=== PATIENT | male | born 1970 | race Caucasian/White ===

== ENCOUNTER 2021-05-27 14:14 | Emergency (ER) | payer OTHER ==
[~2021-05-27] VITALS: Ht 175.3 cm; Wt 99.8 kg
[2021-05-27] MEDS ORDERED: LISINOPRIL20 MG PO (14:38)
[2021-05-27] MEDS ORDERED: AMLODIPINE BESY10 MG PO (14:38)
[2021-05-27] MEDS ORDERED: CITALOPRAM HBR20 MG PO (14:38)
[2021-05-27] MEDS ORDERED: VITAMIN D350 MCG PO (14:39)
[2021-05-27] MEDS ORDERED: ONDANSETRON ODT8 MG PO (16:57)
== END 2021-05-27 17:14 | disposition home or self-care (01) ==
LOC: ED 14:14
DX: K52.9 Noninfective gastroenteritis and colitis, unspecified (principal); Z20.822 Contact with and (suspected) exposure to COVID-19; I10 Essential (primary) hypertension; Z87.891 Personal history of nicotine dependence; Z79.899 Other long term (current) drug therapy
CPT/HCPCS: 80053; 85025; 96374; 99284-25; C9803; J2405; J7030; J7121; U0003

== ENCOUNTER 2025-06-13 09:20 | Emergency (ER) | payer OTHER ==
[~2025-06-13] VITALS: Ht 175.3 cm; Wt 95.5 kg
[~2025-06-13 09:20] MED LIST: AMLODIPINE BESY10 MG PO; CITALOPRAM HBR20 MG PO; LISINOPRIL20 MG PO; ONDANSETRON ODT8 MG PO; VITAMIN D350 MCG PO
[2025-06-13 09:41] LABS: BASOPHILS 0.2 % (0.2-1.2); EOSINOPHILS 0.5 % (0.8-7.0); LYMPHOCYTES 21.7 % (21.8-53.1); MCH 31.4 PG (25.7-32.2); MCHC 33.2 g/dL (32.3-36.5); MCV 94.6 fL (79.0-92.2); MONOCYTES 5.3 % (5.3-12.2); NEUTROPHILS 71.7 % (34.0-67.9); RBC 5.00 M/uL (4.63-6.08)
[2025-06-13] MEDS ORDERED: HYDROmorphone HCL 1 MG/ML SYR IV ONE (09:45)
[2025-06-13 09:55] LABS: INR 0.94 (0.80-1.30); PROTIME 11.9 Sec (11.2-14.2)
[2025-06-13 10:02] LABS: ALT (SGPT) 28.0 U/L (14-59); AST (SGOT) 15.0 U/L (15-37); GLOMERULAR FILTRATION RATE,EST 109.0 mL/min (>60); PROTEIN, TOTAL 7.3 g/dL (6.4-8.2); UREA NITROGEN 33.0 mg/dL (7-18)
[2025-06-13] MEDS ORDERED: ESMOLOL HCL 250 ML IV SCH (10:15)
[2025-06-13] MEDS ORDERED: LIDOCAINE & ANTACID 35 ML BTL PO ONE (10:45)
[2025-06-13] MEDS ORDERED: ASPIRIN 81 MG CHEW PO ONE (10:45)
[2025-06-13] MEDS ORDERED: OMEPRAZOLE40 MG PO (12:23)
[2025-06-13 12:39] VITALS: BP 157/87
--- NOTE | 2025-06-14 14:00 | EKG ---
[facility] [address] [facility] [place] [address] Signed Normal sinus rhythm Normal ECG No previous ECGs available Confirmed by Tawanda Hidalgo MD () on 06/14/2025 2:00:46 PM Electronically Signed By: TAWANDA HIDALGO MD 06/14/25 1400 PATIENT NAME: CHON RAMOS Electrocardiogram DATE OF : 74 PHYSICIAN: TAWANDA HIDALGO MD REPORT #: [id number] REPORT IS CONFIDENTIAL AND NOT TO BE RELEASED WITHOUT AUTHORIZATION
== END 2025-06-13 12:41 | disposition home or self-care (01) ==
LOC: ED 09:20
PROVIDERS: Emergency Medicine
DX: K21.9 Gastro-esophageal reflux disease without esophagitis (principal); I10 Essential (primary) hypertension; Z87.891 Personal history of nicotine dependence
CPT/HCPCS: 36415; 71045; 71275; 74175; 80053; 83880; 84484; 85025; 85379; 85610; 85730; 93005; 93010; 96365; 96375; 99285-25; A9270; J1171; J2405; Q9967

== ENCOUNTER 2025-09-12 01:03 | Observation (INO) | payer OTHER ==
[2025-09-12] VITALS (7 sets, daily range): BP systolic 133–165; BP diastolic 78–98
[~2025-09-12] VITALS: Ht 175.3 cm; Wt 98.5 kg
[~2025-09-12 01:03] MED LIST changes: +OMEPRAZOLE40 MG PO
[2025-09-12 01:25] LABS: BASOPHILS 0.2 % (0.2-1.2); EOSINOPHILS 1.0 % (0.8-7.0); LYMPHOCYTES 15.6 % (21.8-53.1); MCH 33.0 PG (25.7-32.2); MCHC 34.3 g/dL (32.3-36.5); MCV 96.2 fL (79.0-92.2); MONOCYTES 6.1 % (5.3-12.2); NEUTROPHILS 76.7 % (34.0-67.9); RBC 5.03 M/uL (4.63-6.08)
[2025-09-12] MEDS ORDERED: MORPHINE SULFATE 4 MG/ML VIAL IV ONE (01:30)
[2025-09-12] MEDS ORDERED: FAMOTIDINE 20 MG/ 2 ML VIAL IV ONE (01:30)
[2025-09-12] MEDS ORDERED: LACTATED RINGER'S 1,000 ML IV SCH ×4 (01:30→12:00)
[2025-09-12 01:40] LABS: ALT (SGPT) 28.0 U/L (14-59); AST (SGOT) 14.0 U/L (15-37); GLOMERULAR FILTRATION RATE,EST 106.0 mL/min (>60); PROTEIN, TOTAL 7.4 g/dL (6.4-8.2); UREA NITROGEN 24.0 mg/dL (7-18)
[2025-09-12] MEDS ORDERED: KETOROLAC TROMETHAMINE 30 MG/ML VIAL IV ONE (02:00)
[2025-09-12 02:13] LABS: BLOOD/HGB, URINE TRACE-I (Negative); KETONE, URINE NEGATIVE (Negative); LEUK ESTERASE, URINE NEGATIVE (negative); NITRITE, URINE NEGATIVE (negative)
[2025-09-12] MEDS ORDERED: TAMSULOSIN HCL 0.4 MG CAP PO ONE (02:15)
[2025-09-12 02:28] LABS: AMPHETAMINES, URINE NEGATIVE (NEGATIVE); BARBITURATES, URINE NEGATIVE (NEGATIVE); BENZODIAZEPINE, URINE NEGATIVE (NEGATIVE); CANNABINOID, URINE POSITIVE (NEGATIVE); COCAINE, URINE POSITIVE (NEGATIVE); ECSTASY, URINE NEGATIVE (NEGATIVE); FENTANYL, URINE NEGATIVE (NEGATIVE); METHADONE, URINE NEGATIVE (NEGATIVE); OPIATES, URINE POSITIVE (NEGATIVE); OXYCODONE, URINE NEGATIVE (NEGATIVE); PHENCYCLIDINE, URINE NEGATIVE (NEGATIVE)
[2025-09-12 02:36] LABS: CRYSTALS, URINE NONE SEEN (0-1+); EPITHELIAL CELLS, URINE NONE SEEN /lpf (0-1+)
[2025-09-12 02:37] LABS: BACTERIA, URINE NONE SEEN /hpf (negative); CASTS, URINE NONE SEEN \\lpf; REFLEX CULTURE, URINE No (No)
[2025-09-12] MEDS ORDERED: CEFAZOLIN SODIUM 2 GM in SODIUM CHLORIDE 0.9% 100 ML IV ONE (04:00)
[2025-09-12] MEDS ORDERED: AMLODIPINE BESYLATE 10 MG TAB PO ONE (05:15)
[2025-09-12] MEDS ORDERED: MORPHINE SULFATE 4 MG/ML VIAL IV PRN (07:00)
--- NOTE | 2025-09-12 08:23 | NUR ---
PT ARRIVES TO MED-SURG AT 0807 VIA GURNEY, ESCORTED BY MIKA JONES. VERBAL REPORT RECEIVED. PT IS ALERT AND ORIENTED. VSS. PT IS CALM AND COOPERATIVE. ARRIVES WITH GLASSES ON. CLOTHING REMOVED, NEW GOWN DONNED. PT ORIENTED TO ROOM, BED AND CALL LIGHT. STANDING WEIGHT OBTAINED. PT DENIES NAUSEA AT THIS TIME. REPORTS RLQ AND EPIGASTRIC PAIN TOLERABLE AT THIS TIME, 10/30. CELL PHONE AT BEDSIDE. NO REQUESTS AT THIS TIME.
[2025-09-12] MEDS ORDERED: FAMOTIDINE 20 MG/ 2 ML VIAL IV SCH ×2 (09:00→12:01)
--- NOTE | 2025-09-12 10:11 | NUR ---
PT JUST ARRIVED - NPO STATUS - PT HAS CALL LIGHT AND IS WATCHING TV.
--- NOTE | 2025-09-12 10:31 | NUR ---
MORPHINE RECEIVED FOR RLQ PAIN 5/10, SEE EMAR.
[2025-09-12] MEDS ORDERED: SEVOFLURANE 250 ML BTL INH ONE (10:33)
[2025-09-12] MEDS ORDERED: KETOROLAC TROMETHAMINE 30 MG/ML VIAL IV PRN (12:00)
[2025-09-12] MEDS ORDERED: CEFAZOLIN SODIUM 2 GM in SODIUM CHLORIDE 0.9% 100 ML IV SCH (12:00)
[2025-09-12] MEDS ORDERED: MORPHINE SULFATE 10 MG/ML VIAL IV PRN (12:00)
[2025-09-12] MEDS ORDERED: ALBUTEROL SULFATE 0.083% 3 ML VIAL INH SCH (12:15)
--- NOTE | 2025-09-12 12:52 | NUR ---
DISCUSSED PRE PROCEDURE INSTRUCTIONS, PT VERBALIZES UNDERSTANDING. COMPLETE CHG WIPE DOWN. NEW GOWN DONNED, NEW LINEN PLACED ON BED.
--- NOTE | 2025-09-12 12:54 | NUR ---
PT PERFORMED PRE-SURGICAL WIPEDOWN. COMPLETE LINEN CHANGE AND GOWN CHANGE COMPLETED. RN PREPARING PT FOR SURGERY. CALL LIGHT IS WITH PT.
--- NOTE | 2025-09-12 12:57 | NUR ---
LR INFUSION RATE CHANGED TO 85ML/HR ORDERED.
--- NOTE | 2025-09-12 13:58 | EKG ---
[facility] [address] [facility] [place] [address] Signed Normal sinus rhythm Normal ECG When compared with ECG of 13-JUN-2025 09:27, No significant change was found Confirmed by Tawanda Hidalgo MD () on 09/12/2025 1:58:25 PM Electronically Signed By: TAWANDA HIDALGO MD 09/12/25 1358 PATIENT NAME: CHON RAMOS Electrocardiogram DATE OF : 74 PHYSICIAN: TAWANDA HIDALGO MD REPORT #: [id number] REPORT IS CONFIDENTIAL AND NOT TO BE RELEASED WITHOUT AUTHORIZATION
[2025-09-12] MEDS ORDERED: KETOROLAC TROMETHAMINE 30 MG/ML VIAL ONE (15:33)
[2025-09-12] MEDS ORDERED: DEXAMETHASONE SOD PHOS 4 MG/ML VIAL ONE (15:33)
[2025-09-12] MEDS ORDERED: ACETAMINOPHEN 1,000 MG/100 ML VIAL ONE (15:34)
[2025-09-12] MEDS ORDERED: SUGAMMADEX SODIUM 200 MG/2 ML ML ONE (15:34)
[2025-09-12] MEDS ORDERED: LIDOCAINE HCL 2% 5 ML SDV ONE (15:34)
[2025-09-12] MEDS ORDERED: MIDAZOLAM HCL 2 MG/2 ML VIAL ONE (15:34)
[2025-09-12] MEDS ORDERED: SUCCINYLCHOLINE IN 0.9% NACL 200 MG/10 ML SYRINGE ONE (15:34)
[2025-09-12] MEDS ORDERED: ROCURONIUM BROMIDE 50 MG/5 ML SYR ONE ×2 (15:34→16:38)
[2025-09-12] MEDS ORDERED: fentaNYL citrate 100 MCG/2 ML VIAL ONE ×2 (15:34→16:40)
--- NOTE | 2025-09-12 15:41 | NUR ---
PT RESTS IN BED, AWAKE AND ALERT, GLASSES OFF. DISCUSSED PRE-OP PRECEDURE, PT VERBALIZES UNDERSTANDING.
--- NOTE | 2025-09-12 15:50 | NUR ---
PT LEAVES MED-SURG VIA [facility] FOR SURGICAL PROCEDURE.
[2025-09-12] MEDS ORDERED: PROCHLORPERAZINE EDISYLATE 10 MG/2 ML VIAL IV PRN (16:00)
[2025-09-12] MEDS ORDERED: fentaNYL citrate 50 MCG/ML SDV IV PRN (16:00)
[2025-09-12] MEDS ORDERED: NALOXONE HCL 0.4 MG SYR IV PRN (16:00)
[2025-09-12] MEDS ORDERED: HYDROmorphone HCL 1 MG/ML SYR IV PRN (16:00)
[2025-09-12] MEDS ORDERED: IBLOOD GLUCOSE TEST STRIP 1 EA TEST VI PRN (16:00)
[2025-09-12] MEDS ORDERED: PHENYLEPHRINE HCL IN 0.9% NACL 1 MG/10 ML SYR ONE (16:11)
[2025-09-12] MEDS ORDERED: VASOPRESSIN 20 UNITS/ML VIAL ONE (16:18)
[2025-09-12] MEDS ORDERED: LACTATED RINGER'S 1,000 ML IV ONE (16:52)
[2025-09-12] MEDS ORDERED: NICOTINE 21 MG/24 HR 1 EA TDSY TD SCH (18:00)
--- NOTE | 2025-09-12 18:01 | NUR ---
09/12/25 1801 Michelle Mack 1736- PT IS TRANSFERED TO PACU. BREATHING IS EVEN AND UNLABORED. 6L OF O2 VIA MASK IN PLACE. PT IS REACTIVE TO STILULI BUT UNABLE TO FOLLOW DIRECTIONS. PT SITS UP AND ROLLS TO THE LEFT SIDE. VSS. MONITORS PUT IN PLACE. 174-O2 TURNED OFF AND REMOVED AT THIS TIME. PT DENIES PAIN AND NAUSEA AND EASILY FALLS BACK TO SLEEP WITH SNORING NOTED. 1743-PT O2 DECREASED TO 87% WHILE RESTING. PT IS ENCOURAGED TO BREATH DEEPLY AND IS ABLE TO FOLLOW DIRECTIONS. 2 SATS INCREASE TO 91% BUT SLOWLY DECREASE. 2L OF O2 VIA NC PUT IN PLACE AT THIS TIME. 1747- PT O2 SATS CONTINUE TO BE IN THE HIGH 80S. O2 INCREASED TO 3L. PT MAINTAINING O2 SATS IN THE LOW 90S AND IS COUGHING OFF AND ON. 1756- PT IS GIVEN A PILLOW FOR SPLINTING AND EDUCATED ABOUT COUGHING AND DEEP BREATHING AND PT IS UNDERSTANDING AND ABLE TO DO SO WITHOUT REMINDING.
--- NOTE | 2025-09-12 18:14 | NUR ---
PT RETURNS TO MED-SURG VIA BED, AWAKE AND ALERT. BEDSIDE REPORT RECEIVED FROM MIKA WHEATLEY. VSS. PT DENIES PAIN OR NAUSEA AT THIS TIME. INCISION SITES X4 TO RIGHT ABDOMEN AND EPIGASTRIC REGION ARE WELL APPROXIMATED WITH STERI STRIPS. OLD SEROSANGUINEOUS DRAINAGE NOTED. PT ON 2LPM, SPO2 98%, OCCASIONAL COUGH. BT X4 ACTIVE. COARSE LUNG SOUNDS IN THE UPPER LOBES. PT ENCOURAGED TO BRACE ABDOMEN WITH PILLOW WHEN COUGHING. SCDS TO BLE FROM TOES TO KNEE. CPOX IN PLACE.
[2025-09-12] MEDS ORDERED: OXYCODONE/APAP 7.5/325 TAB PO PRN (18:15)
[2025-09-12] MEDS ORDERED: IBUPROFEN 600 MG TAB PO PRN (18:15)
[2025-09-12] MEDS ORDERED: ACETAMINOPHEN 500 MG TAB PO PRN (18:15)
--- NOTE | 2025-09-12 18:20 | NUR ---
LR CONTINUOUS INFUSION RESUMED ORDER. LAC IV PATENT, NO REDNESS OR LEAKING NOTED.
--- NOTE | 2025-09-12 21:13 | NUR ---
PATIENT RESTING IN BED NO DISTRESS NOTED ON VISUAL, PATIENT REPORTS PAIN IS TOLERABLE AT THIS TIME. V/S COMPLETE. HE NOW ON 2L N.C. SATURATION IS 93%. ON ASSESSMENT CONCERN NOTED FOR RIGHT LATERAL LAP SITE IS SWOLLEN. PATIENT REPORTS NOT NORMAL.
--- NOTE | 2025-09-12 21:27 | NUR ---
CALLED FOR LATERAL RIGHT SIDE SWELLING UNDER LAP SITE. UPDATED ON PATIENT STATUS, V/S, URINE OUT. ASSESSMENT. SAID TO APPLY PRESSURE AND MONITOR FOR NOW. PATIENT HAD SIGNIFICANT COUGHING IN PACU AND HAS CONTINUED TO HAVE INTERMITTEN COUGH POST OP.
--- NOTE | 2025-09-12 21:30 | NUR ---
CHON (AKA: TEODORO) DEFINITELY BENEFITED FROM THE ALBUTEROL TREATMENT. BREATH SOUNDS GOING FROM DIM FINE CRACKLES TO CLEAR POST TREATMENT. UPON DISCHARGE, TEODORO WOULD BENEFIT FROM A HOME NEBULIZER WITH DUONEBS QID AND ALBUTEROL PRN. ADDITIONALLY, HE MAY NEED HOME OXYGEN, ESPECIALLY WHEN SLEEPING.
[2025-09-12] MEDS ORDERED: ALBUTEROL SULFATE 0.083% 3 ML VIAL INH PRN (22:00)
--- NOTE | 2025-09-12 23:44 | NUR ---
STAFF NURSE SONIA RN INTO PATIENT ROOM DUE TO PATIENT IV ALARMING, HIS IV IS IN HIS LEFT AC, AND HE CONTINUES TO BEND HIS ARM HE REFUSED TO ALLOW SONIA TO PLACE WASH CLOTH WITH LAURI WRAP TO HELP PREVENT BENDING HE REFUSED HE SAID TO HER, "IF THIS GOES OFF ONE MORE TIME I AM GOING TO LOSE MY FUCKING SHIFT." SONIA RN REPORT TO THIS RN WHAT HAS OCCURRED. THIS RN INTO PATIENT ROOM TO ASSESS HOW TO RESOLVE PATIENT COMPLAINT. THIS RN ASKED PATIENT IF HE WOULD ALLOW A NEW IV PLACED THAT IS NOT IN THE BEND OF HIS ARM, THIS WOULD ALLOW YOU TO BEND YOUR ARM WITHOUT CAUSING THE IV PUMP TO ALARM. PATIENT SAID, "NO, I DONT WANT ANYMORE HOLES POCKED IN ME!" HE THEN SAID, "I WANT THAT TURNED OFF, IF IT GOES OFF AGAIN I MIGHT JUST SMASH THE MACHINE, I AM NOT GOING TO GET ANY SLEEP TONIGHT AND I AM LEAVING FIRST THING IN THE MORNING WITH OR WITHOUT SEEING THE DR." PATIENT IS NOTED TO BE VERY IRRITABLE/FRUSTRATED. HE REPORTS HIS PAIN 6/10, PATIENT INITIAL VOCABULARY WAS PRESSURED. PATIENT HAS BEEN EATING DRINKING AND VOIDING WNL. THIS RN AGREED TO S/L FOR NOW. DISCUSSED PAIN MANAGEMENT WITH PATIENT, GAVE SECOND TAB OF PERCOCET AND 4MG IV DILAUDID PRN AT THIS TIME, HE SAID YES PLEASE. AFTER PAIN MEDICATIONS ADMINISTERED PATIENT VERBALIZED THAT HE IS SORRY FOR HIS BEHAVIOR, HE REPORTS HE HAS A HARD TIME FALLING ASLEEP AND IF WOKE HE CAN NOT GET BACK TO SLEEP. DISCUSSED CARE PLAN WITH PATIENT FOR SAFE DISCHARGE, INCLUDING EATING/DRINKING/VOIDING/ AND AMBULATING. HE HAS BEEN OUT OF BED TO VOID, HE IS HAS HAD A LUNCH BOX WITH NO NAUSEA. HE IS DRINKING WATER. PATIENT ALSO REPORTED IN REGARDS TO BENDING ARM HE IS VERY ACTIVE SLEEPER AND HE CANT JUST LAY STILL.
[2025-09-13] VITALS (8 sets, daily range): BP systolic 137–163; BP diastolic 70–91
--- NOTE | 2025-09-13 01:34 | NUR ---
ROUDNING, PATIENT ALERT AND ORIENTED, HE HAS VOIDED 500ML CLEAR YELLOW URINE, HE IS CALM AND COOPERATIVE WITH CARES AT THIS TIME. HIS OXYGEN SATURATION IS 95% ON 2L, TITRATED TO 1L OXYGEN AT THIS TIME. PATIENT REPORTS PAIN IS WELL MANAGED AT THIS TIME.
--- NOTE | 2025-09-13 02:15 | NUR ---
PATIENT RESTING IN BED AWAKE, CONTINUES APPLY PRESSURE TO RIGHT LATERAL LAP SITE, SWEELING HAS RESOLVED. HE IS NOW ON ROOM AIR 95% OXYGEN SATURATION. HE IS PLEASANT AN COOPERATIVE WITH CARES. HE REPORTS PAIN IS WELL MANAGED, SECOND LUNCH BOX PROVIDED WITH YOGURT.
--- NOTE | 2025-09-13 04:41 | NUR ---
PATIENT REPORTING PAIN 7/10 AT UMBILICUS INCISION AFTER COUGHING, THIS RN ASSESSED, INCISION WNL, SMALL AMOUNT OF SEROSANGUINEOUS DRAINAGE NOT ON GAUZE THAT WAS PLACED AT START OF SHIFT. HE IS APPROPRIATELY PROVIDING PRESSURE SUPPORT WITH PILLOW OR HAND TO SITE WHEN COUGHING. PERCOCET 2 TABS AND MOTRIN PROVIDED AT THIS TIME. V/S STABLE, AM ASSESSMENT COMPLETE. NO NEW CONCERNS AT THIS TIME.
--- NOTE | 2025-09-13 06:57 | NUR ---
pt AWAKE TALKING ON PHONE. IV SITE FLUSHED WNL, IV ANTIBIOTIC INFUSING ORDERED. URINAL EMPTIED. CALL LIGHT AND PERSONAL SUPPLIES WITHIN REACH.
--- NOTE | 2025-09-13 07:15 | NUR ---
VERBAL REPORT RECEIVED FROM MIKA LABOY. PT RESTS IN BED AWAKE AND ALERT. DENIES NEEDS AT THIS TIME. CALL LIGHT IN REACH.
[2025-09-13] MEDS ORDERED: ALBUTEROL/IPRATROPIUM 3 ML NEB INH SCH (08:00)
--- NOTE | 2025-09-13 10:41 | NUR ---
PT AMBULATES IN HALLWAY INDEPENDENTLY FOR 5 LAPS AROUND THE NURSES STATION, TOLERATES THIS WELL. PT BACK TO ROOM. NO REQUESTS AT THIS TIME.
--- NOTE | 2025-09-13 11:08 | NUR ---
UR CLINICAL REVIEW: [facility] REVIEW MEETS OBS FOR LAP CHOLECYSTECTOMY WITH PAIN AND NAUSEA [facility] 09/12/25 @ 0105 ORDER MATCHES REG NO AUTH REQUIRED PER [facility] GUIDELINES DISCHARGE TO HOME WHEN STABLE ADD: 09/13/25 NEXT REVIEW: 09/14/25
--- NOTE | 2025-09-13 11:13 | NUR ---
INTO PATIENT. PERSONAL HEALTH INFORMATION REVIEWED. PATIENT LIVES AT HOME ALONE. COUPLE STEPS INTO HOME DENIES ANY DIFFCULTY DOING THEM. HE HAS DME IF HE NEEDS IT BUT DOES NOT USE IT. HAS SOME INHALERS AT HOME. PATIENT DRIVES. DENIES ANY DIFFCULTY PAYING UTLITIES OR OBTAINING FOOD. PATIENT HAS A FRIEND TO POTENTIALLY PICK HIM UP IF HE NEEDS A RIDE AT TIME OF DISCHARGE. NO FUTHER CM NEEDS.
[2025-09-13] MEDS ORDERED: OMEPRAZOLE40 MG PO (11:39)
[2025-09-13] MEDS ORDERED: VENTOLIN HFA18 GM INH (11:40)
--- NOTE | 2025-09-13 11:40 | NUR ---
MED REC COMPLETE
--- NOTE | 2025-09-13 13:16 | NUR ---
PT RECEIVES NORCO FOR 7/10 INCISIONAL PAIN, SEE EMAR.
--- NOTE | 2025-09-13 13:21 | NUR ---
VSS. SPO2 97% ON RA. WHEEZES THOUGHOUT LUNGS, OCCASIONAL LOOSE COUGH NOTED. 18 RPM, DENIES SOB OR NAUSEA. TOLERATES 100% OF LUNCH WELL. HRR. ABDOMEN SOFT, TENDER TO TOUCH, NO SWELLING OR ERYTHEMA. INCISIONS REMAIN WELL APPROXIMATED WITH SUTURES, NO NEW DRAINAGE NOTED. BT X4 ACTIVE. CALL LIGHT IN REACH. NO REQUESTS AT THIS TIME.
[2025-09-13] MEDS ORDERED: NICOTINE1 EAC2 TD (15:34)
[2025-09-13] MEDS ORDERED: OXYCODON-ACETA1 EAC2 PO (15:34)
[2025-09-13] MEDS ORDERED: IBUPROFEN600 MG PO (15:34)
[2025-09-13] MEDS ORDERED: ACETAMINOPHEN500 MG PO (15:34)
--- NOTE | 2025-09-13 15:46 | NUR ---
PT SITS ON COUCH IN ROOM, FULLY DRESSED. WHEN ADDRESSED, "STATES I CAN'T BELIEVE IT CAME TO THIS. I TOOK IT OUT." WHEN ASKED WHAT, HE INDICATED HIS IV. "I KNOW WHAT THEY SAID, I DID IT MY SELF."
--- NOTE | 2025-09-13 15:47 | NUR ---
NOTED CATHETER REMOVED BY PT ON SINK, TIP INTACT.
--- NOTE | 2025-09-13 15:52 | NUR ---
DISCUSSED WITH PT HIS DISCHARGE, PT CONFIRMS HE SPOKE WITH DR. FARMER ABOUT HIS DISCHARGE PLAN. PT AGREEABLE TO REVIEW DISCHARGE INSTRUCTIONS. VERBAL AND WRITTEN INSTRUCTIONS RECEIVED. OXYCODONE PAPER RX RECEIVED. PT IMMEDIATELY LEAVES ROOM, "STATES I HAVE A RIDE AND LEAVES." PT APPEARS AGITATED AND STATES, "I CAN'T BELIEVE IT CAME TO THIS." UNSURE OF SOURCE OF AGITATION. PT APPEARED TO BECOME UPSET AFTER APPROACHING THE NURSES STATION AND ASKING JM LEE TO REMOVE HIS IV TO WHICH SHE REPLIED, "OKAY, WE WIIL, IT WILL BE JUST A MINUTE." THE ROUTINE PROCESS FOR PT DISCHARGE WAS THEN FOLLOWED. PT LEFT PHONE OPTICAL ASSISTANT HIND. OPTICAL ASSISTANT PLACED IN ZIP LOCK BAD AND LABLED WITH PT NAME, KEPT AT NURSES STATION.
--- NOTE | 2025-09-15 14:52 | HP ---
[facility] [address] [place], [place] [address] Signed ADMISSION DATE: 09/12/2025 REASON FOR ADMISSION: Acute calculous cholecystitis. HISTORY OF PRESENT ILLNESS: This 55-year-old white man is a smoker and has long-standing COPD. He quit 15 years ago but restarted smoking two years ago. He sees a physician in [place] (Dr. Joseline Cruz). Last night, he was awakened from sleep at approximately 11:00 p.m. with severe right upper abdominal and right posterior thoracic pain. He tried various maneuvers to relieve himself of the pain, but nothing was effective. He presented to the emergency room where he was evaluated by Dr. Velasquez. On initial presentation, the complaint of pain was rather low in the abdomen on the right side. A CT scan was done, which showed a left distal ureteral calculus and pericholecystic inflammatory stranding, but no radiodense stones or biliary dilatation and a normal appendix. A gallbladder ultrasound was subsequently performed, which showed a 2.4 cm shadowing gallstone in the dependent gallbladder neck region with mild gallbladder wall thickening and no dilated ducts. His chest x-ray was normal. He was admitted for further evaluation and care on the basis of acute calculous cholecystitis. LABORATORY STUDIES: At presentation showed a white count of 12.2, hematocrit of 48.4, and platelets of 241,000 and chem profile which was essentially normal. Glucose is 132. Liver enzymes were normal. Troponin 6.3, which is normal. A toxicology lab did affirm cocaine and marijuana, which he admitted to the emergency room physician that he has taken. Urinalysis was essentially normal but it had 4 to 6 red cells per high-power field. Since admission, he continues to have right upper abdominal pain, though it is somewhat improved. 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 He does have hypertension, depression and reflux disease as well. He is a daily smoker and drinks alcohol daily as well. PAST SURGICAL HISTORY: Includes left rotator cuff operation, disk fusion of the low back and ankle surgery. He has not had abdominal surgery. CURRENT MEDICINES: Include: Electronically Signed By: KEYANNA FARMER MD 09/15/25 1452 PATIENT NAME: CHON RAMOS HISTORY AND PHYSICAL DATE OF : 74 REPORT #: [id number] PHYSICIAN: KEYANNA FARMER MD PCP: OTHER PCP REPORT IS CONFIDENTIAL AND NOT TO BE RELEASED WITHOUT AUTHORIZATION [facility] [address], [place] [address] Signed 1. Omeprazole. 2. Zofran. 3. Amlodipine. 4. Lisinopril. 5. Vitamin D3. SOCIAL HISTORY: He is not . He lives in the [facility]. 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 REVIEW OF SYSTEMS: He denies any shortness of breath or chest pain. He does use an albuterol nebulizer from time to time. He has no dysuria or hematuria. He has had no hematemesis or blood per rectum. PHYSICAL EXAMINATION: GENERAL: A pleasant white man who does not look systemically toxic at this time. VITAL SIGNS: Temperature is 97.5, pulse 92, blood pressure 147/84, saturation on room air is 95%. HEENT: Trachea is midline. He does have somewhat of a wheeze currently. EXTREMITIES: Show no clubbing, cyanosis, or edema. ABDOMEN: Examination of abdomen shows no ascites. He has mild tenderness in the right upper quadrant. No palpable mass is noted. EXTREMITIES: Show no clubbing, cyanosis, or edema. LAB STUDIES: As previously noted most dominantly, white count 12.2, hematocrit 48.4, platelets 241,000. Liver enzymes are normal. Toxicology positive for methamphetamine and cannabinoids. I have reviewed his chest x-ray, which looks quite normal without sign of infiltrate as abdominal and pelvic CT, which shows the gallbladder clearly and without sign of stones, not particularly abnormal in appearance grossly and the ultrasound which was reviewed also which shows reasonably normal liver and a gallstone and gallbladder wall thickening. ASSESSMENT: The patient has acute calculous cholecystitis. Concurrent issues include substance abuse as well as reactive airways disease/chronic obstructive pulmonary disease, but chest x-ray appearing normal and clinical exam showing some wheezing. I would recommend cholecystectomy. I discussed the pathophysiology of biliary disease with him using the whiteboard and my recommendation for his acute calculous Electronically Signed By: KEYANNA FARMER MD 09/15/25 1452 PATIENT NAME: CHON RAMOS HISTORY AND PHYSICAL DATE OF : 74 REPORT #: [id number] PHYSICIAN: KEYANNA FARMER MD PCP: OTHER PCP REPORT IS CONFIDENTIAL AND NOT TO BE RELEASED WITHOUT AUTHORIZATION [address] [address] Signed cholecystitis would be cholecystectomy preferred by a laparoscopic approach. The risk of bleeding, infection, bile duct injury, need for open procedure and need for common duct exploration were all reviewed in detail. He understands and wished to proceed. Anticipating operation today, we will initiate albuterol nebulizer treatment as his lungs are somewhat wheezy currently, though he does not show respiratory distress otherwise. Ancef antibiotic, parenteral pain medication and so forth have already been initiated as well. MD MELISSA Marquez/DEBIL /[id number] cc: Dr. Velasquez Copies: ~ Electronically Signed By: KEYANNA FARMER MD 09/15/25 1452 PATIENT NAME: CHON RAMOS HISTORY AND PHYSICAL DATE OF : 74 REPORT #: [id number] PHYSICIAN: KEYANNA FRAMER MD PCP: OTHER PCP REPORT IS CONFIDENTIAL AND NOT TO BE RELEASED WITHOUT AUTHORIZATION
--- NOTE | 2025-09-15 14:52 | OR ---
[facility] [address], [place] [address] Signed DATE OF OPERATION: 09/12/2025 SURGEON: Keyanna Farmer MD PREOPERATIVE DIAGNOSIS: Acute calculous cholecystitis. POSTOPERATIVE DIAGNOSES: 1. Acute calculous cholecystitis. 2. Extensive intraabdominal adhesions. PROCEDURES: 1. Laparoscopic lysis of adhesions to provide access for trocar insertion. 2. Laparoscopic cholecystectomy with intraoperative cholangiogram. 3. Surgeon-directed fluoroscopy. ANESTHESIA: General endotracheal. Rafiq Dc CRNA and local 10 mL of 0.25% Marcaine with epinephrine. INDICATION: This 55-year-old white man presented to the emergency room late last night with complaints of severe right upper abdominal pain. Evaluation included a CT scan and ultimately ultrasound which confirmed gallstones and findings consistent with acute cholecystitis. He has been fluid resuscitated, given intravenous antibiotics and now to undergo cholecystectomy preferred by a laparoscopic approach. The patient has had no other intraabdominal interventions that he can recount. The risk of bleeding, infection, bile duct injury, need for open procedure, need for other indicated procedures were reviewed in detail. He understands and wished to proceed. FINDINGS: Surprisingly, extensive omental adhesions to the anterior abdominal wall in the upper abdomen were noted. This made the operation prolonged complicated and difficult as adhesiolysis was required to provide access to the upper abdomen. Similarly, the gallbladder was markedly involved in the omental adhesions as well. The gallbladder was quite acutely inflamed, distended, and did require decompression, but once excised showed 2 large gallstones more than 2.5 cm each. Cholangiogram was normal. The mucosa showed no sign of neoplasm or other problem. The liver was reasonably normal. DESCRIPTION OF PROCEDURE: Electronically Signed By: KEYANNA FARMER MD 09/15/25 1452 PATIENT NAME: CHON RAMOS OPERATIVE REPORT DATE OF : 74 REPORT #: [id number] PHYSICIAN: KEYANNA FARMER MD PCP: OTHER PCP REPORT IS CONFIDENTIAL AND NOT TO BE RELEASED WITHOUT AUTHORIZATION [facility] [address], [place] [address] Signed The patient was brought to the operating room, given a general endotracheal anesthetic. Preoperative antibiotic Ancef had been given. Sequential compression device stockings used and heparin subcutaneously administered. The abdomen was clipped and prepared with chlorhexidine solution and draped sterilely. An infraumbilical incision was made and using an open Neil cannula technique, pneumoperitoneum was achieved to a level of 14 mmHg of carbon dioxide gas. Intra-abdominal inspection showed no sign of ascites or carcinomatosis. There were dense omental adhesions to the anterior abdominal wall in the upper abdomen, surprising since he has not had abdominal intervention before at least that he conveyed to [place]. On that basis, a right lateral 5 mm trocar was placed and under direct visualization, lysis of the omental adhesions to the anterior abdominal wall were taken down with a blunt and sharp dissection ultimately providing a window to the upper abdomen for access. In the usual position in the epigastric area, a 12 mm port was placed and subsequently a right midclavicular 5 mm port. This allowed for manipulation of the omentum out of the way showing the gallbladder markedly distended and inflamed and densely adherent to the omental adhesions. The gallbladder was unable to be grasped due to its distention and on that basis, it was decompressed with a needle trocar device allowing for decompression of bile-stained fluid. The puncture site was then grasped and the gallbladder elevated cephalad. Omental adhesions to the inferior aspect of the gallbladder, particularly notable in the lower 3rd was then undertaken with meticulous care. Photographs were taken throughout. Ultimately, this gallbladder was fully exposed. Using blunt and electrocautery dissection, the triangle of Calot was dissected free identifying well the cystic duct as well as cystic arterial branches. A clip was applied across gallbladder cystic duct junction and 2 small clips were applied to the dominant cystic artery. A transverse choledochotomy was made in the cystic duct and egress of clear yellow bile was noted. Using the Jean type cholangiocatheter system, intraoperative cholangiography was undertaken showing free flow of contrast in biliary tree with prompt emptying into the duodenum. The projection of the Jean clamp in the region of the cystic duct and common bile duct, obscured full visualization there, but there was no sign of dilation elsewhere nor filling defect and it was considered complete at that point. The catheter was removed and cystic duct was triply clipped and divided. The gallbladder was then dissected free in a retrograde fashion using electrocautery. No entry into the gallbladder was made at that point. The gallbladder was placed in an Endobag and extracted through the infraumbilical port site without problem, opened on the back table and found to have severe inflammation of mucosa and 2 large gallstones at least 2.5 cm each. Irrigation was undertaken in the subhepatic space. There was no sign of bile leak, bleeding or other problems. Excess irrigation fluid was suctioned free. The trocars removed under direct visualization showing no sign of bleeding. The infraumbilical fascial incision was reapproximated with interrupted 0 Vicryl suture. 10 mL of 0.25% Marcaine with epinephrine was injected locally and the skin was closed with interrupted 3-0 Vicryl. Steri-Strips were applied. The patient was ultimately Electronically Signed By: KEYANNA FARMER MD 09/15/25 7357 PATIENT NAME: CHON RAMOS OPERATIVE REPORT DATE OF : 74 REPORT #: [id number] PHYSICIAN: KEYANNA FARMER MD PCP: OTHER PCP REPORT IS CONFIDENTIAL AND NOT TO BE RELEASED WITHOUT AUTHORIZATION [facility] [address], [place] [address] Signed extubated and transferred to the recovery room in good condition having suffered no complication. Sponge, needle, and instrument counts were reported as correct x3. MD MELISSA Marquez/MODL /[id number] cc: Dr. Kirt Velasquez [facility] MD Harshad Branham [place] Copies: ~ Electronically Signed By: KEYANNA FARMER MD 09/15/25 1452 PATIENT NAME: CHON RAMOS OPERATIVE REPORT DATE OF : 74 REPORT #: [id number] PHYSICIAN: KEYANNA FARMER MD PCP: OTHER PCP REPORT IS CONFIDENTIAL AND NOT TO BE RELEASED WITHOUT AUTHORIZATION
--- NOTE | 2025-09-20 14:16 | PATH ---
[facility] [address], [place] [address] Signed SPECIMEN(S): A GALLBLADDER AND STONES SPECIMEN SOURCE: A. GALLBLADDER AND STONES CLINICAL HISTORY: Cholecystitis, cholelithiasis. FINAL PATHOLOGIC DIAGNOSIS: Gallbladder, cholecystectomy - Morphologic features consistent with chronic cholecystitis with cholelithiasis NA MICROSCOPIC EXAMINATION: Histologic sections of all submitted blocks are examined by light microscopy. These findings, together with the gross examination, support the pathologic diagnosis. GROSS DESCRIPTION: The specimen, labeled and designated "Ruskin, R, " and designated on the requisition "gallbladder and stones," is received in formalin and consists of Specimen: Previously opened gallbladder. Dimensions: 7.9 x 4.5 x 1.6 cm. Serosa: Yellow-james and smooth with attached yellow-james adipose tissue. Cystic Duct: Inked, unobstructed. Calculi: Two orange-brown smooth and multilobulated calculi that measure 3.0 cm and 2.6 cm in greatest dimension. Mucosa: Patrick-red and granular with areas of green softening. Wall thickness: 0.8 cm. Lymph node: No pericystic lymph nodes are grossly identified. Additional: None. Health Services Information Specialist sections are submitted in (A1). FB (under the direct supervision of a pathologist) The Gross Description was prepared using a voice recognition system. The report was reviewed for accuracy; however, sound-alike word errors, addition and/or deletions may occur. If there is any question about this report, please contact Client Services. ADDITIONAL NOTES: Immunohistochemical and/or in situ hybridization studies if performed in this PATIENT NAME: CHON RAMOS PATHOLOGY DATE OF : 74 REPORT #: [id number] PHYSICIAN: GERRY MAZARIEGOS PCP: OTHER PCP REPORT IS CONFIDENTIAL AND NOT TO BE RELEASED WITHOUT AUTHORIZATION [address] [place], [place] [address] Signed case included appropriate positive controls that reacted as expected. This test was developed and its performance characteristics determined by [facility]. It has not been cleared or approved by the U.S. Food and Drug Administration. The FDA has determined that such clearance or approval is not necessary. This test is used for clinical purposes. It should not be regarded as investigational or for research. [facility] is certified under the Clinical Laboratory Improvement Amendments of 1988 (CLIA) as qualified to perform high complexity clinical laboratory testing. PERFORMING LABORATORY: Technical component was performed by [facility], [address] [place] [address] (CLIA# [id number]). Professional interpretation was performed by [facility] - [address] [id number] Diagnostician: Abimbola Dhillon MD Pathologist Electronically Signed 09/20/2025 Copies: ~ PATIENT NAME: CHON RAMOS PATHOLOGY DATE OF : 74 REPORT #: [id number] PHYSICIAN: GERRY MAZARIEGOS PCP: OTHER PCP REPORT IS CONFIDENTIAL AND NOT TO BE RELEASED WITHOUT AUTHORIZATION
== END 2025-09-13 15:54 | disposition home or self-care (01) ==
LOC: ED 01:03 → MS 01:05
PROVIDERS: Internal Medicine; ADMIT Surgery; ATTEND Surgery
PROC: BF12YZZ Fluoroscopy of Gallbladder using Other Contrast (ICD-10-PCS; 2025-09-12)
PROC: 0FT44ZG Resection of Gallbladder, Percutaneous Endoscopic Approach, Hand-Assisted (ICD-10-PCS; principal; 2025-09-12 15:00)
DX: K80.00 Calculus of gallbladder with acute cholecystitis without obstruction (principal); K66.0 Peritoneal adhesions (postprocedural) (postinfection); I10 Essential (primary) hypertension; K21.9 Gastro-esophageal reflux disease without esophagitis; F32.A Depression, unspecified; J44.9 Chronic obstructive pulmonary disease, unspecified; F17.200 Nicotine dependence, unspecified, uncomplicated; Z79.899 Other long term (current) drug therapy
CPT/HCPCS: 00790; 36415; 71045; 74177; 74300; 76705; 80053; 80307; 81001; 83690; 84484; 85025; 93005; 93010; 94640; 94667; 94762; 94799; 96361; 96365; 96366; 96375; 96376; 99285-25; A9270; G0378; J0131; J0165; J0330; J0688; J1100; J1885; J2003; J2250; J2270; J2405; J2704; J3010; J3490; J7121; Q9967

== ENCOUNTER 2025-09-15 13:40 | Observation (INO) | payer OTHER ==
[~2025-09-15] VITALS: Ht 175.3 cm; Wt 96.0 kg
[~2025-09-15 13:40] MED LIST changes: +ACETAMINOPHEN500 MG PO; +IBUPROFEN600 MG PO; +NICOTINE1 EAC2 TD; +OXYCODON-ACETA1 EAC2 PO; +SEVOFLURANE 250 ML BTL INH ONE; +VENTOLIN HFA18 GM INH
--- OUTSIDE RECORDS SUMMARY | 2025-09-15 13:42 | XMS ---
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 Joyce VISIT COUNT (12 MO.) 3 JASON Jay TOTAL 3 NOTE: Visits indicate total known visits. ED/UCC VISIT TRACKING (12 MO.) 09/15/2025 13:41 JASON Bernard [place] TYPE: Emergency COMPLAINT: - POST OP PROBLEM 09/12/2025 01:04 JASON [facility] [place] TYPE: Emergency COMPLAINT: - ABD PAIN 06/13/2025 09:21 JASON [facility] [place] TYPE: Emergency COMPLAINT: - CHEST PAIN DIAGNOSES: - Chest pain, unspecified - Essential (primary) hypertension - Gastro-esophageal reflux disease without esophagitis - Personal history of nicotine dependence INPATIENT VISIT TRACKING (12 MO.) 09/12/2025 01:05 JASON Bernard [place] TYPE: Observation COMPLAINT: - ACUTE CHOLECYSTITIS DIAGNOSES: - Calculus of gallbladder with acute cholecystitis without obstruction - Chronic obstructive pulmonary disease, unspecified - Depression, unspecified - Essential (primary) hypertension - Gastro-esophageal reflux disease without esophagitis - Nicotine dependence, unspecified, uncomplicated - 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
[2025-09-15] MEDS ORDERED: SODIUM CHLORIDE 0.9% 500 ML IV ONE (14:15)
[2025-09-15 14:21] LABS: BASOPHILS 0.2 % (0.2-1.2); EOSINOPHILS 0.4 % (0.8-7.0); LYMPHOCYTES 6.0 % (21.8-53.1); MCH 32.5 PG (25.7-32.2); MCHC 35.0 g/dL (32.3-36.5); MCV 92.9 fL (79.0-92.2); MONOCYTES 4.9 % (5.3-12.2); NEUTROPHILS 88.1 % (34.0-67.9); RBC 5.93 M/uL (4.63-6.08)
[2025-09-15] MEDS ORDERED: SODIUM CHLORIDE 0.9% 1,000 ML IV PRN (14:30)
[2025-09-15] MEDS ORDERED: HYDROmorphone HCL 1 MG/ML SYR IV ONE ×2 (14:30→17:00)
[2025-09-15 15:04] LABS: ALT (SGPT) 234.0 U/L (14-59); AST (SGOT) 125.0 U/L (15-37); GLOMERULAR FILTRATION RATE,EST 102.0 mL/min (>60); PROTEIN, TOTAL 8.5 g/dL (6.4-8.2); UREA NITROGEN 21.0 mg/dL (7-18)
[2025-09-15 16:17] LABS: BLOOD/HGB, URINE NEGATIVE (Negative); KETONE, URINE TRACE (Negative); LEUK ESTERASE, URINE NEGATIVE (negative); NITRITE, URINE NEGATIVE (negative)
[2025-09-15 16:25] LABS: BACTERIA, URINE NONE SEEN /hpf (negative); CASTS, URINE HYALINE 1+ \\lpf; CRYSTALS, URINE NONE SEEN (0-1+); EPITHELIAL CELLS, URINE SQUAMOUS 1+ /lpf (0-1+); REFLEX CULTURE, URINE No (No)
[2025-09-15] MEDS ORDERED: LACTATED RINGER'S 1,000 ML IV SCH ×2 (16:30→17:15)
[2025-09-15] MEDS ORDERED: MIDAZOLAM HCL 2 MG/2 ML VIAL IV ONE (16:30)
[2025-09-15] MEDS ORDERED: LIDOCAINE 2% (VISCOUS) HCL 15 ML UDC ONE (16:44)
[2025-09-15] MEDS ORDERED: LIDOCAINE 2% (VISCOUS) HCL 15 ML UDC MT ONE (17:00)
[2025-09-15] MEDS ORDERED: KETOROLAC TROMETHAMINE 30 MG/ML VIAL IV PRN (17:15)
[2025-09-15] MEDS ORDERED: MORPHINE SULFATE 10 MG/ML VIAL IV PRN (17:15)
[2025-09-15 17:43] VITALS: BP 167/97
--- NOTE | 2025-09-15 17:47 | NUR ---
REPORT RECIEVED FROM MIKA FERNANDEZ. PATIENT TRANSFERED FROM STRETCHER TO BED VIA STAND BY ASSIST.
--- NOTE | 2025-09-15 18:55 | NUR ---
DR FARMER CALLED DUE TO NO ORDER FOR WALL SUCTION FOR PATIENT. MD WITH TELEPHONE ORDER FOR 80MM INTERMITTENT SUCTION. MD WITH NO FURTHER ORDERS AT THIS TIME. CALL ENDED.
--- NOTE | 2025-09-15 19:10 | NUR ---
REPORT RECEIVED FROM JUDITH BRENNAN. pt RESTING IN THE BED WITH NG TUBE CONNECTED TO LIWS. IVF INFUSING PER ORDER. DAY SURGERY CALLED STATING THEY WERE COMING TO PICK HIM UP. PRE-OP WIPE DOWN DONE. LR WITH STRAIGHT TUBING IN RM PRIMED AND READY. pt DENIES ANY OTHER NEEDS AT THIS TIME. CALL LIGHT WITHIN REACH.
[2025-09-15 20:12] VITALS: BP 151/85
[2025-09-15 20:15] VITALS: BP 151/85
--- NOTE | 2025-09-15 20:15 | NUR ---
IN RM TO DO ASSESSMENT AND VITAL SIGNS DONE. IV ASSESSED, WNL. IVF INFUSING PER ORDER. BOARD UPDATED. pt UP TO THE BR, SBA FOR LINE TUBE MANAGEMENT. pt CONNECTED TO LIWS WHEN BACK TO BED. pt C/O 5/10 PAIN. pt STATES HIS PAIN IS TOLERABLE AT THIS TIME. pt DENIES ANY OTHER NEEDS AT THIS TIME. CALL LIGHT WITHIN REACH.
[2025-09-15] MEDS ORDERED: ROCURONIUM BROMIDE 50 MG/5 ML SYR ONE (20:52)
[2025-09-15] MEDS ORDERED: SUGAMMADEX SODIUM 200 MG/2 ML ML ONE (20:52)
[2025-09-15] MEDS ORDERED: LIDOCAINE HCL 1% 30 ML SDV ONE (20:53)
[2025-09-15] MEDS ORDERED: LIDOCAINE HCL 2% 5 ML SDV ONE (20:53)
[2025-09-15] MEDS ORDERED: fentaNYL citrate 100 MCG/2 ML VIAL ONE (20:53)
[2025-09-15] MEDS ORDERED: MIDAZOLAM HCL 2 MG/2 ML VIAL ONE (20:53)
[2025-09-15] MEDS ORDERED: FAMOTIDINE 20 MG/ 2 ML VIAL IV SCH (21:00)
[2025-09-15] MEDS ORDERED: SODIUM CHLORIDE 0.9% 20 ML IV ONE ×2 (21:36→22:21)
[2025-09-15] MEDS ORDERED: CEFAZOLIN SOD 1,000 MG/10 ML VIAL ONE (21:36)
--- NOTE | 2025-09-15 21:40 | NUR ---
pacu called to come and get PT at 2130. kenia barba RN on the floor and received the PT at 2139. PT in the bed and ready for surgery. wipedown done. NG tube connected to LIWS. IVF infusing per order. PT denies any other needs at this time. call light within reach.
[2025-09-15] MEDS ORDERED: SUCCINYLCHOLINE IN 0.9% NACL 200 MG/10 ML SYRINGE ONE (21:52)
[2025-09-15] MEDS ORDERED: PHENYLEPHRINE HCL IN 0.9% NACL 1 MG/10 ML SYR ONE (21:59)
[2025-09-15] MEDS ORDERED: CEFAZOLIN SODIUM 2 GM in SODIUM CHLORIDE 0.9% 100 ML IV SCH (22:00)
[2025-09-15] MEDS ORDERED: ACETAMINOPHEN 1,000 MG/100 ML VIAL ONE (22:11)
[2025-09-15] MEDS ORDERED: ALBUTEROL 1 PUFF INH ONE (22:21)
[2025-09-15] MEDS ORDERED: NICOTINE 21 MG/24 HR 1 EA TDSY TD SCH (22:45)
--- NOTE | 2025-09-15 22:48 | NUR ---
09/15/252247 Neelam Ponce LE 223: PT ARRIVES TO PACU NON REACTIVE WITH ORAL AIRWAY IN PLACE. PT IS CONNECTED TO THE MONITORS. REPORT RECEIVED FROM OR AND AND STRIP STAMP STRAIGHTENER. LE 2241: PT WAKES UP AND STARTS TO COUGH. ORAL AIRWAY IS REMOVED, STRIP STAMP STRAIGHTENER SUCTIONS BACK OF THROAT/MOUTH. LE 2244: NG TUBE IS REMOVED.
[2025-09-15] MEDS ORDERED: OXYCODON-ACETA1 EAC2 PO (22:54)
[2025-09-15] MEDS ORDERED: MOTRIN IB200 MG PO (22:55)
[2025-09-15] MEDS ORDERED: TYLENOL EXTRA500 MG PO (22:55)
[2025-09-15] MEDS ORDERED: ALBUTEROL SULFATE 0.083% 3 ML VIAL ONE (23:09)
[2025-09-15] MEDS ORDERED: GUAIFENESIN/CODEINE 5 ML UDC ONE (23:13)
[2025-09-15] MEDS ORDERED: ACETAMINOPHEN/CODEINE #3 1 EA TAB PO PRN (23:15)
[2025-09-15] MEDS ORDERED: GUAIFENESIN/CODEINE 5 ML UDC PO ONE (23:15)
[2025-09-15] MEDS ORDERED: GUAIFENESIN/CODEINE 5 ML UDC PO SCH (23:15)
[2025-09-15] MEDS ORDERED: ALBUTEROL SULFATE 0.083% 3 ML VIAL INH PRN (23:15)
[2025-09-15] MEDS ORDERED: ACETAMINOPHEN/CODEINE #3 1 EA TAB PO ONE (23:15)
[2025-09-15] MEDS ORDERED: GUAIFEN-CODEINE10 ML PO (23:17)
--- NOTE | 2025-09-15 23:43 | NUR ---
pt RETURNED FROM PACU. pt AWAKE AND RESTING IN BED, COUGHING NOTED-USING PILLOW TO SPLINT ABD. 6L OXYMASK IN PLACE, RR EVEN AND UNLABORED. PER PACU OSCAR, ENTIRE DRESSING HAD TO BE CHANGED IN PACU D/T "SEVERE COUGHING". AND BINDER IN PLACE. REPORT GIVEN IMMEDIATELY TO PRIMARY MIKA SANON, MIKA SANON IN ROOM TO COMPLETE VS AND pt ASSESSMENT. CALL LIGHT IN REACH.
[2025-09-16] VITALS (7 sets, daily range): BP systolic 115–186; BP diastolic 62–91
[2025-09-16] MEDS ORDERED: ALBUTEROL/IPRATROPIUM 3 ML NEB INH SCH
[2025-09-16] MEDS ORDERED: IBUPROFEN 600 MG TAB PO PRN (00:15)
[2025-09-16] MEDS ORDERED: ACETAMINOPHEN 500 MG TAB PO PRN (00:15)
[2025-09-16] MEDS ORDERED: OXYCODONE/APAP 7.5/325 TAB PO PRN (00:15)
--- NOTE | 2025-09-16 00:28 | NUR ---
CHON WOULD BENEFIT FROM A HOME NEBULIZER WITH DUONEB AND ALBUTEROL. DUONEB QID AND ALBUTEROL Q2 PRN.
--- NOTE | 2025-09-16 00:40 | NUR ---
IN RM TO DO ASSESSMENT AND VITAL SIGNS. pt ABD PAD CHANGED. PREVIOUS PAD WAS SATURATED WITH SS FLUID. OTHER FAJARDO BANDAGES INTACT. pt LAYING ON RIGHT. pt DENIES ANY OTHER NEEDS AT THIS TIME. CALL LIGHT WITHIN REACH. ICE WATER PROVIDED. SCHEDULED MEDS ADMINISTERED.
--- NOTE | 2025-09-16 02:31 | NUR ---
IN RM TO DO POST-OP VITAL SIGNS AND ASSESSMENT. pt SITTING UP IN THE BED. SCHEDULED MEDS ADMININSTERED. WATER REFRESHED. pt DENIES ANY OTHER NEEDS AT THIS TIME. CALL LIGHT WITHIN REACH.
--- NOTE | 2025-09-16 03:30 | NUR ---
IN RM TO DO VITAL SIGNS. pt C/O 04/29 PAIN. PRN PAIN MEDS ADMINISTERED. pt DENIES ANY OTHER NEEDS AT THIS TIME. CALL LIGHT WITHIN REACH.
--- NOTE | 2025-09-16 07:17 | NUR ---
RECIEVED REPORT FROM MIKA MAZA. PT IS RESTING IN BED WITH EYES CLOSED. RT IS IN ROOM AT THIS TIME.
--- NOTE | 2025-09-16 08:18 | NUR ---
PATIENT IS LAYING IN BED. PATIENT DECLINED TO WASHFACE, BRUSH TEETH AND TO GET INTO CHAIR FOR BREAKFAST. PATIENT EXPRESSED CONCERNED ABOUT GETTING UP TO USE THE RESTROOM DUE TO NOT WANTING ANYMORE PROBLEMS WITH HIS BOWELS. MIKA DELGADILLO WAS NOTIFIED. CALL LIGHT IS WITHIN REACH AND NO FURTHER NEEDS AT THIS TIME.
--- NOTE | 2025-09-16 08:23 | NUR ---
MED REC COMPLETE
--- NOTE | 2025-09-16 09:45 | NUR ---
PATIENT VERY UPSET UPON ENTERING ENTERING THE ROOM. PATIENT IS FLAT AND NOT MAKING EYE CONTACT. PATIENT REPORTED MD WAS "A FUCKING BITCH AND TREATING ME LIKE I'M HELD HOSTAGE". PATIENT REFUSED ALL MEDICATIONS AND FURTHER CARES. PATIENT REPORTS BEING ABLE TO AMBULATE AND CARE FOR SELF INDEPENDENTLY. PATIENT REPORTS WANTING TO LEAVE AMA. RIAZ CHARGE NURSE NOTIFIED. MIKA MELLO WENT INTO THE PATIENT ROOM TO SPEAK WITH THE PATIENT, RIAZ REPORTED TO DR. HORTON, WHO SAID JUST SIGN AMA FORM AND UNDERSTOOD. PATIENT REMAINS UPSET AND WANTING TO LEAVE. [facility] NOTIFIED . PATIENT REFUSED TO SIGN THE AMA FORM AND STATED "MS.PERSONALITY CAN SIGN IT". JM DARLING GETS VITAL SIGNS AND WALKS THE PATIENT OUT AT THIS TIME. IV REMOVED PRIOR TO DISCHARGE.
--- NOTE | 2025-09-17 13:11 | EKG ---
[facility] [address] [facility] [place] [address] Signed Sinus rhythm with marked sinus arrhythmia Otherwise normal ECG When compared with ECG of 12-SEP-2025 04:12, No significant change was found Confirmed by Luigi Guerra DO ([id number]) on 09/17/2025 1:11:38 PM Electronically Signed By: LUIGI GUERRA DO 09/17/25 1311 PATIENT NAME: EJCHARLEENCHON JENNIFER Electrocardiogram DATE OF : 74 PHYSICIAN: LUIGI GUERRA DO REPORT #: [id number] REPORT IS CONFIDENTIAL AND NOT TO BE RELEASED WITHOUT AUTHORIZATION
--- NOTE | 2025-09-20 08:17 | OR ---
[facility] [address], [place] [address] Signed DATE OF OPERATION: 09/15/2025 SURGEON: Keyanna Farmer MD PREOPERATIVE DIAGNOSES: 1. Incarcerated incisional hernia with small bowel obstruction. 2. Recent (09/12/2025) laparoscopic cholecystectomy. 3. Underlying severe reactive airways disease. POSTOPERATIVE DIAGNOSES: 1. Incarcerated incisional hernia with small bowel obstruction, fascial defect 2.5 cm. 2. Recent (09/12/2025) laparoscopic cholecystectomy. 3. Underlying severe reactive airways disease. PROCEDURE: Repair of incarcerated incisional hernia 2.5 cm fascial defect. ANESTHESIA: General endotracheal, Magnolia Lara CRNA and local 10 mL of 0.25% Marcaine with epinephrine. INDICATION: This 55-year-old white male was admitted through the emergency room on 09/12/2025 with severe cholecystitis. He underwent laparoscopic cholecystectomy with cholangiogram. He was noted to have extensive intraabdominal adhesions. The patient has underlying severe respiratory disease and COPD. At time of extubation, he had a fair amount of coughing and straining, but no apparent problem with his incision. He was discharged the following day, having done very well and with no problems. Today, he began having central abdominal pain at the umbilicus and presented to the emergency room, was evaluated by Dr. Buckley and found to have tenderness in the abdominal umbilical area. There is mild erythema of the skin. The other incisions were fine. A CT scan was performed confirming an incisional hernia at the umbilicus with protrusion of small bowel and findings consistent with small bowel obstruction. I placed a nasogastric tube myself as it was unable to be performed by the nursing staff, which drained a fair amount of bilious fluid. He has been fluid resuscitated and now to undergo repair of the hernia and reduction of the small bowel loop causing the bowel obstruction. He understands the risk of bleeding, infection, recurrent disease and so forth and wished to proceed. Electronically Signed By: KEYANNA FARMER MD 09/20/25 0817 PATIENT NAME: CHON RAMOS OPERATIVE REPORT DATE OF : 74 REPORT #: [id number] PHYSICIAN: KEYANNA FARMER MD PCP: TYLER LOVE MD REPORT IS CONFIDENTIAL AND NOT TO BE RELEASED WITHOUT AUTHORIZATION [facility] [address], [place] [address] Signed FINDINGS: Indeed, there was small bowel that had transgressed the fascial layer into the subcutaneous tissue, but was not external to the skin. There was no sign of infection. The fascia was reasonably miles, but Vicryl sutures were quite obviously broken. Repair consisted of primary closure of the fascial edges with interrupted 0 Prolene suture. His extubation was smooth without excessive straining, coughing, or other problem. He tolerated the procedure well. DESCRIPTION OF PROCEDURE: The patient was brought to the operating room, given a general endotracheal anesthetic. Preoperative antibiotic Ancef was given. Sequential compression device stockings used. After satisfactory general endotracheal anesthesia, a small OpSite was applied to the other trocar sites and the mid abdomen was prepared with a chlorhexidine solution and draped sterilely. The previous infraumbilical incision was incised and the incision was taken cephalad somewhat and with meticulous care, the subcutaneous tissue opened. A small segment of small bowel was noted in the subcutaneous space. This was carefully freed from the surrounding fatty tissue carefully avoiding any injury to the bowel. The incision was extended a bit cephalad and the small bowel loop encircled with the digit showing it to be completely viable, though inflamed. It was easily reduced into the peritoneal cavity. The small bowel was examined internally. It showed no sign of ischemia, perforation, or other problem. Irrigation was undertaken with saline. The fascial defect at this point was approximately 2.5 cm. It was grasped with Allis clamps, elevated, and repaired with interrupted 0 Prolene suture in a horizontal mattress configuration. Irrigation was undertaken more fully and the area was then infiltrated with 0.25% Marcaine with epinephrine 10 mL in total. Scarpas layer was reapproximated with interrupted 2-0 Vicryl and skin closed with running 3-0 Vicryl. Steri-Strips were applied as was an Acticoat dressing. The patient tolerated the procedure well, was extubated without coughing or straining, much improved compared to last operative intervention and he was taken recovery room in good condition. Blood loss was minimal. Complications none. MD MELISSA Marquez/MODL /[id number] Electronically Signed By: KEYANNA FARMER MD 09/20/25 0817 PATIENT NAME: CHON RAMOS OPERATIVE REPORT DATE OF : 74 REPORT #: [id number] PHYSICIAN: KEYANNA FARMER MD PCP: TYLER LOVE MD REPORT IS CONFIDENTIAL AND NOT TO BE RELEASED WITHOUT AUTHORIZATION [place] [phone] Signed cc: Maico Buckley MD Copies: MAICO BUCKLEY MD ~ Electronically Signed By: KEYANNA FARMER MD 09/20/25 0817 PATIENT NAME: CHON RAMOS OPERATIVE REPORT DATE OF : 74 REPORT #: [id number] PHYSICIAN: KEYANNA FARMER MD PCP: TYLER LOVE MD REPORT IS CONFIDENTIAL AND NOT TO BE RELEASED WITHOUT AUTHORIZATION
--- NOTE | 2025-09-20 08:17 | HP ---
[facility] [address], [place] [address] Signed ADMISSION DATE: 09/15/2025 PROBLEM: Incarcerated incisional hernia. Recent laparoscopic cholecystectomy. HISTORY: This 55-year-old white man has underlying significant COPD and other issues and presented to the hospital with acute cholecystitis and underwent laparoscopic cholecystectomy with extensive lysis of adhesions by me on September 12, 2025, 3 days ago. He was kept postoperatively 1 day and did completely well. In fact, he has been doing well for the past few days until today when he noted abdominal pain, which was rather extensive. He presented to the emergency room where he was evaluated by Dr. Buckley and found to have tenderness and swelling at the region of the umbilicus. A CT scan was performed which confirms a herniated small bowel in the region of the umbilical incision and gastric distention. Nurse attempted nasogastric tube placement, was unsuccessful, and I have placed that myself draining bilious fluid at this point. The bowel was obstructed related to this hernia no doubt. He generally feels reasonably well except for pain at the umbilicus. He has had abdominal distention since his presentation as would be expected. Notably, his CBC shows a white count of 16.9, hematocrit of 55.1, platelets 314,000. Electrolytes essentially normal. Creatinine 0.90. Urinalysis was essentially normal. Review of his CT scan was undertaken in the presence of Dr. Buckley and confirming gastric distention prior to placement of the nasogastric tube, relatively thin abdominal wall, distention of small bowel loops and herniation of small bowel in the region of the umbilicus. He is admitted for further evaluation and care. PAST MEDICAL HISTORY: Significant for: 1. Substance abuse in the past. 2. He has had a left rotator cuff operation. 3. Disk fusion of the low back. 4. Ankle surgery. 5. Some neck and facial surgery related to trauma in the past. 6. He has had methamphetamine use for 2 years, was "clean" for 15 years. 7. Does have underlying hypertension. 8. Depression. 9. Reflux disease. Electronically Signed By: KEYANNA FARMER MD 09/20/25 0817 PATIENT NAME: CHON RAMOS HISTORY AND PHYSICAL DATE OF : 74 REPORT #: [id number] PHYSICIAN: KEYANNA FARMER MD PCP: TYLER LOVE MD REPORT IS CONFIDENTIAL AND NOT TO BE RELEASED WITHOUT AUTHORIZATION [facility] [address], [place] [address] Signed SOCIAL HISTORY: He is a daily smoker and drinks alcohol routinely as well. REVIEW OF SYSTEMS: He denies any shortness of breath or chest pain. His main issue is pain at the umbilicus with the hernia as previously described. PHYSICAL EXAMINATION: GENERAL: Pleasant white man who is alert and oriented. VITAL SIGNS: Temperature was 97.6, pulse 100, blood pressure 155/81, O2 saturations 97% on room air, subsequently 94% on room air. HEENT: Nasogastric tube was placed draining light green bilious fluid. CHEST: Clear. HEART: Regular. ABDOMEN: Mildly distended, and the mass was noted at the umbilicus as well. There is no sign of evisceration. The skin is intact. There is mild erythema there. EXTREMITIES: Show no clubbing, cyanosis, or edema. LABORATORY DATA: Lab studies are as described. An EKG is now being performed as well. ASSESSMENT: The patient has an incarcerated incisional hernia at the umbilicus causing small bowel obstruction. Nasogastric tube decompression has been undertaken, and IV fluids are running. The patient will need reduction of the hernia so as to avoid ischemic changes of the bowel and restore his GI continuity. It is recalled that during the course of his emergence from anesthesia, he did have a fair amount of straining and coughing no doubt related to his underlying pulmonary issues. This may have been a time for which a disruption of typically simple and secure closure could have been compromised. In any case, operation is needed. The risks of bleeding, infection, need for bowel resection, other unforeseen complications were reviewed in detail with him. He understands and wished to proceed. Keyanna Farmer MD /AVEL /[id number] Electronically Signed By: KEYANNA FARMER MD 09/20/25 0817 PATIENT NAME: CHON RAMOS HISTORY AND PHYSICAL DATE OF : 74 REPORT #: [id number] PHYSICIAN: KEYANNA FARMER MD PCP: TYLER LOVE MD REPORT IS CONFIDENTIAL AND NOT TO BE RELEASED WITHOUT AUTHORIZATION [facility] [address], [place] [address] Signed cc: Dr. Marcio Burton Copies: ~ Electronically Signed By: KEYANNA FARMER MD 09/20/25 0817 PATIENT NAME: CHON RAMOS HISTORY AND PHYSICAL DATE OF : 74 REPORT #: [id number] PHYSICIAN: KEYANNA FARMER MD PCP: TYLER LOVE MD REPORT IS CONFIDENTIAL AND NOT TO BE RELEASED WITHOUT AUTHORIZATION
== END 2025-09-16 10:01 | disposition left against medical advice (07) ==
LOC: ED 13:40 → MS 17:25 → ED 17:25 → MS 09-16 10:01
PROVIDERS: Internal Medicine; ADMIT Surgery; ATTEND Surgery
PROC: 0WQF0ZZ Repair Abdominal Wall, Open Approach (ICD-10-PCS; principal; 2025-09-15 22:02)
DX: K43.0 Incisional hernia with obstruction, without gangrene (principal); J44.89 Other specified chronic obstructive pulmonary disease; F17.200 Nicotine dependence, unspecified, uncomplicated; I10 Essential (primary) hypertension; Z98.890 Other specified postprocedural states; Z79.899 Other long term (current) drug therapy
CPT/HCPCS: 00750; 36415; 74177; 80053; 81001; 83735; 85025; 93005; 93010; 94640; 94760; 94762; 96375; A9270; G0378; J0131; J0165; J0330; J0688; J0690; J1171; J1885; J2003; J2250; J2270; J2405; J2704; J3010; J3490; J7030; J7121; Q9967